=== PATIENT | female | born 2000 | race Caucasian/White ===

== ENCOUNTER 2021-09-21 02:44 | Outpatient (CLI) | payer OTHER | END 2021-09-21 04:34 | disposition home or self-care (01) | LOC: GENOP 02:44 | DX: O99.891 Other specified diseases and conditions complicating pregnancy (principal); R03.0 Elevated blood-pressure reading, without diagnosis of hypertension; R60.0 Localized edema; R10.2 Pelvic and perineal pain; M54.9 Dorsalgia, unspecified; Z3A.39 39 weeks gestation of pregnancy | CPT/HCPCS: 59025; 81001 ==